=== PATIENT | male | born 1975 | race Hispanic/Latino ===

== ENCOUNTER 2017-12-19 00:37 | Inpatient (IN) | payer OTHER ==
[~2017-12-19] VITALS: Ht 182.9 cm; Wt 166.9 kg
[2017-12-19] MEDS ORDERED: ACETAMINOPHEN 325 MG TAB ONE ×2 (01:05→04:34)
[2017-12-19] MEDS ORDERED: SODIUM CHLORIDE 0.9% 1000ML 3,000 ML IV ONE (01:05)
[2017-12-19 01:20] LABS: BASOPHILS % (AUTO) 0.2 % (0.0-5.0); EOSINOPHILS % (AUTO) 0.2 % (0.0-8.0); HEMATOCRIT 46.5 % (42-54); LYMPHOCYTES % (AUTO) 6.3 % (21.0-51.0); MEAN CORPUSCULAR HEMOGLOBIN 29.6 pg (27.0-33.0); MEAN CORPUSCULAR HGB CONC 33.9 g/dL (32.0-36.0); MEAN CORPUSCULAR VOLUME 87.2 fL (79-99); MONOCYTES % (AUTO) 6.1 % (3.0-13.0); NEUTROPHILS % (AUTO) 87.2 % (40.0-77.0); PLATELET COUNT (AUTO) 243 K/uL (130-400); RED BLOOD CELL COUNT(AUTO) 5.33 MIL/uL (4.50-6.20); RED CELL DISTRIBUTION WIDTH 14.1 % (11.0-15.5); WHITE BLOOD COUNT (AUTO) 19.1 K/uL (4.8-10.8)
[2017-12-19 01:26] LABS: CARBON DIOXIDE 26 mmol/L (21-32); CHLORIDE 101 mmol/L (101-111); CREATININE 1.2 mg/dL (0.5-1.5); GLOMERULAR FILTR. RATE CALC 70 mL/min (>60); GLUCOSE,RANDOM 217 mg/dL (70-105); POTASSIUM 3.7 mmol/L (3.5-5.1); SODIUM SERUM 135 mmol/L (136-145); UREA NITROGEN, BLOOD 19 mg/dL (7-18)
[2017-12-19 01:32] LABS: INR 1.09 (0.85-1.15); PARTIAL THROMBOPLASTIN TIME 28.8 SEC (26.3-35.5); PROTHROMBIN TIME 11.4 SEC (9.6-11.6)
[2017-12-19 01:40] LABS: ALANINE AMINOTRANSFERASE 36 U/L (12-78); ALBUMIN 3.3 g/dL (3.5-5.0); ASPARTATE AMINOTRANSFERASE 30 U/L (10-37); BILIRUBIN,TOTAL 1.1 mg/dL (0.2-1.0); CREATINE KINASE MB 0.5 ng/mL (0.5-3.6); CREATINE KINASE, TOTAL 76 U/L (21-232); MYOGLOBIN 40 ng/mL (10-92); TOTAL PROTEIN, SERUM 7.6 g/dL (6.0-8.3); TROPONIN I < 0.04 ng/mL (0.00-0.06)
[2017-12-19 01:43] LABS: APPEARANCE,URINE Turbid (CLEAR); BILIRUBIN,URINE Moderate (NEGATIVE); COLOR,URINE Dark Yellow (YELLOW); GLUCOSE, URINE (UA) 250 mg/dL (NEGATIVE); KETONES,URINE Trace mg/dL (NEGATIVE); LEUKOCYTE ESTERASE ,URINE Small (NEGATIVE); NITRATE,URINE Positive (NEGATIVE); OCCULT BLOOD,URINE Negative (NEGATIVE); PROTEIN,URINE POS 2+ (NEGATIVE)
[2017-12-19 01:50] LABS: AMPHET/METH SCREEN,URINE NEGATIVE (NEGATIVE); BARBITURATE SCREEN, URINE NEGATIVE (NEGATIVE); BENZODIAZEPINES SCREEN,URINE NEGATIVE (NEGATIVE); CANNABINOID SCREEN,URINE NEGATIVE (NEGATIVE); COCAINE SCREEN,URINE NEGATIVE (NEGATIVE); OPIATE SCREEN,URINE NEGATIVE (NEGATIVE); PHENCYCLIDINE SCREEN,URINE NEGATIVE (NEGATIVE)
[2017-12-19 01:54] LABS: AMORPHOUS SEDIMENT,UR Many /LPF (None Seen); BACTERIA,URINE Moderate /HPF (None Seen); MUCUS,URINE Many LPF (None Seen); RBC,URINE None Seen /HPF (0-1); RENAL EPITHELIAL CELLS,URINE Moderate /HPF (None Seen); SQUAMOUS EPITHELIAL CELL,UR Many /HPF (0-2)
[2017-12-19] MEDS ORDERED: LEVOFLOXACIN 750 MG/D5W 150 ML 150 ML ONE (01:54)
[2017-12-19] MEDS ORDERED: IOPAMIDOL-370 100 ML VIAL IV ONE (02:14)
[2017-12-19] MEDS ORDERED: ONDANSETRON HCL MDV 20ML 2 MG/ML VIAL ONE (04:36)
[2017-12-19] MEDS ORDERED: LEVOFLOXACIN 500 MG/D5W 100 ML 100 ML IV SCH (09:00)
[2017-12-19] MEDS: SODIUM CHLORIDE 0.9% 1000ML 1,000 ML IV SCH ×2 (09:51→17:30)
[2017-12-19] MEDS: ACETAMINOPHEN 325 MG TAB PO PRN ×2 (09:54→14:18)
[2017-12-19 10:03] VITALS: BP 138/82
[2017-12-19] MEDS ORDERED: FLUT16H NS (10:43)
[2017-12-19] MEDS ORDERED: GLIP-162 PO (10:43)
[2017-12-19] MEDS ORDERED: OMEP40CA37 PO (10:43)
[2017-12-19] MEDS ORDERED: SITA1TAB6 PO (10:43)
[2017-12-19] MEDS ORDERED: LISI40TA4 PO (10:43)
[2017-12-19] MEDS ORDERED: VARE1TAB22 PO (10:43)
[2017-12-19] MEDS ORDERED: LORA-705 PO (10:43)
[2017-12-19] MEDS ORDERED: ASPI-1197 PO (10:43)
[2017-12-19] MEDS ORDERED: DEXTROSE 50%-WATER 50 ML DISP.SYRIN IV PRN (11:30)
[2017-12-19] MEDS ORDERED: GLUCAGON 1MG KIT 1 MG ML IM PRN (11:30)
[2017-12-19 11:47] VITALS: BP 113/69
[2017-12-19] MEDS: INSULIN HUMULIN R 100 UNIT/ML 3ML SQ SCH ×3 (12:14→20:45)
[2017-12-19] MEDS ORDERED: HYDRALAZINE HCL 20 MG/ML VIAL IV PRN (13:00)
[2017-12-19] MEDS ORDERED: PHARMACY COMMUNICATION MISC SCH (13:30)
[2017-12-19] MEDS ORDERED: ONDANSETRON HCL MDV 20ML 2 MG/ML VIAL IVP PRN (13:30)
[2017-12-19 16:00] VITALS: BP 127/78
[2017-12-19] MEDS: IBUPROFEN 600 MG TABLET PO PRN ×2 (17:39→22:56)
[2017-12-19 20:17] VITALS: BP 137/75
[2017-12-19] MEDS: METRONIDAZOLE 500MG/100ML BAG 100 ML IV SCH (22:46)
[2017-12-20] VITALS (7 sets, daily range): BP systolic 108–166; BP diastolic 62–93
[2017-12-20] MEDS: ACETAMINOPHEN 325 MG TAB PO PRN ×3 (00:15→21:14)
[2017-12-20] MEDS: METRONIDAZOLE 500MG/100ML BAG 100 ML IV SCH ×2 (05:43→14:09)
[2017-12-20 06:05] LABS: HEMATOCRIT 38.7 % (42-54); MEAN CORPUSCULAR HEMOGLOBIN 29.9 pg (27.0-33.0); MEAN CORPUSCULAR HGB CONC 35.1 g/dL (32.0-36.0); MEAN CORPUSCULAR VOLUME 85.1 fL (79-99); PLATELET COUNT (AUTO) 149 K/uL (130-400); RED BLOOD CELL COUNT(AUTO) 4.55 MIL/uL (4.50-6.20); RED CELL DISTRIBUTION WIDTH 14.1 % (11.0-15.5); WHITE BLOOD COUNT (AUTO) 8.5 K/uL (4.8-10.8)
[2017-12-20 06:16] LABS: CREATININE 0.9 mg/dL (0.5-1.5); MAGNESIUM 1.5 mg/dL (1.80-2.40)
[2017-12-20 06:53] LABS: POTASSIUM 2.7 mmol/L (3.5-5.1)
[2017-12-20] MEDS: INSULIN HUMULIN R 100 UNIT/ML 3ML SQ SCH ×4 (07:24→21:00)
[2017-12-20 08:13] LABS: BAND NEUTROPHILS % (MANUAL) 21 % (0-2); LYMPHOCYTES % (MANUAL) 9 % (22-44); MAN.DIFF COMMENT-IMPRESSION MANUAL DIFFERENTIAL; MONOCYTES % (MANUAL) 4 % (2-9); PLATELET MORPHOLOGY COMMENT ADEQUATE; REACTIVE LYMPHOCYTES 1 % (0-0); SEGMENTED NEUTROPHILS % 65 % (40-70)
[2017-12-20] MEDS ORDERED: LIDOCAINE HCL-MPF 1% 2ML VIAL IVP PRN (08:15)
[2017-12-20] MEDS ORDERED: POTASSIUM CHLORIDE 10% ELIXIR 20 MEQ/15 ML UDCUP PO PRN (08:15)
[2017-12-20] MEDS: POTASSIUM CHLORIDE 20MEQ/100ML 100 ML IV PRN ×2 (09:21→23:40)
[2017-12-20] MEDS: POTASSIUM CHLORIDE 20 MEQ ERTAB PO PRN ×4 (09:22→16:52)
[2017-12-20] MEDS: PANTOPRAZOLE SODIUM 40 MG TABLET.DR PO SCH (09:22)
[2017-12-20] MEDS: ENOXAPARIN SODIUM 30 MG/0.3 ML SQ SCH (09:22)
[2017-12-20] MEDS: SODIUM CHLORIDE 0.9% 1000ML 1,000 ML IV SCH ×3 (09:30→21:14)
[2017-12-20] MEDS: IBUPROFEN 600 MG TABLET PO PRN (10:39)
[2017-12-20] MEDS: FLUTICASONE PROPIONATE 50MCG/SPRAY 16 GM BOTTLE NS SCH (12:30)
[2017-12-20] MEDS: LISINOPRIL 40 MG TABLET PO SCH (13:16)
[2017-12-20] MEDS: MAGNESIUM 2GM PREMIX 50ML 50 ML IV SCH (14:09)
[2017-12-20] MEDS ORDERED: LEVOFLOXACIN 500 MG/D5W 100 ML 100 ML IV SCH (18:00)
[2017-12-20] MEDS: **HM** JANUMET 50-1000MG PO SCH (21:00)
[2017-12-20] MEDS: CHANTIX 1 MG PO SCH (21:00)
[2017-12-21 03:30] VITALS: BP 128/75
[2017-12-21 05:46] LABS: CREATININE 0.8 mg/dL (0.5-1.5); MAGNESIUM 1.8 mg/dL (1.80-2.40); POTASSIUM 3.4 mmol/L (3.5-5.1)
[2017-12-21] MEDS: INSULIN HUMULIN R 100 UNIT/ML 3ML SQ SCH ×4 (06:29→21:00)
[2017-12-21] MEDS: POTASSIUM CHLORIDE 20 MEQ ERTAB PO PRN ×2 (06:30→12:33)
[2017-12-21 07:56] VITALS: BP 127/72
[2017-12-21] MEDS: **HM** JANUMET 50-1000MG PO SCH ×2 (09:00→21:00)
[2017-12-21] MEDS: CHANTIX 1 MG PO SCH ×2 (09:00→21:00)
[2017-12-21] MEDS ORDERED: NON-FORMULARY MEDICATION 1 EACH (Omeprazole 40 MG) PO SCH (09:00)
[2017-12-21] MEDS ORDERED: LISINOPRIL 40 MG TABLET PO SCH (09:00)
[2017-12-21] MEDS: GLIPIZIDE XL 5MG TAB PO SCH (09:00)
[2017-12-21] MEDS: SODIUM CHLORIDE 0.9% 1000ML 1,000 ML IV SCH (09:30)
[2017-12-21] MEDS: ENOXAPARIN SODIUM 30 MG/0.3 ML SQ SCH (11:41)
[2017-12-21] MEDS: LISINOPRIL 40 MG TABLET PO SCH (11:42)
[2017-12-21] MEDS: ASPIRIN 81MG TAB.CHEW PO SCH (11:42)
[2017-12-21] MEDS: PANTOPRAZOLE SODIUM 40 MG TABLET.DR PO SCH (11:42)
[2017-12-21] MEDS: FLUTICASONE PROPIONATE 50MCG/SPRAY 16 GM BOTTLE NS SCH (11:43)
[2017-12-21] MEDS: LORATADINE 10 MG TABLET PO SCH (11:47)
[2017-12-21] MEDS: MAGNESIUM 2GM PREMIX 50ML 50 ML IV SCH (11:48)
[2017-12-21 12:29] VITALS: BP 124/77
[2017-12-21 16:46] VITALS: BP 129/72
[2017-12-21 19:15] VITALS: BP 129/74
[2017-12-21] MEDS ORDERED: LEVOFLOXACIN 500 MG/D5W 100 ML 100 ML IV SCH (20:00)
[2017-12-21 23:46] VITALS: BP 130/73
[2017-12-22 04:07] VITALS: BP 135/77
[2017-12-22 05:06] LABS: HEMATOCRIT 38.4 % (42-54); MEAN CORPUSCULAR HEMOGLOBIN 30.3 pg (27.0-33.0); MEAN CORPUSCULAR HGB CONC 35.5 g/dL (32.0-36.0); MEAN CORPUSCULAR VOLUME 85.4 fL (79-99); PLATELET COUNT (AUTO) 192 K/uL (130-400); RED CELL DISTRIBUTION WIDTH 13.8 % (11.0-15.5); WHITE BLOOD COUNT (AUTO) 8.4 K/uL (4.8-10.8)
[2017-12-22 05:30] LABS: CREATININE 0.9 mg/dL (0.5-1.5); MAGNESIUM 1.9 mg/dL (1.80-2.40); POTASSIUM 3.4 mmol/L (3.5-5.1)
[2017-12-22] MEDS: INSULIN HUMULIN R 100 UNIT/ML 3ML SQ SCH ×2 (05:33→11:30)
[2017-12-22] MEDS: SODIUM CHLORIDE 0.9% 1000ML 1,000 ML IV SCH (06:44)
[2017-12-22] MEDS: POTASSIUM CHLORIDE 20 MEQ ERTAB PO PRN (06:45)
[2017-12-22] MEDS: MAGNESIUM 2GM PREMIX 50ML 50 ML IV SCH (07:44)
[2017-12-22 08:00] VITALS: BP 118/75
[2017-12-22] MEDS: ENOXAPARIN SODIUM 30 MG/0.3 ML SQ SCH (09:00)
[2017-12-22] MEDS: PANTOPRAZOLE SODIUM 40 MG TABLET.DR PO SCH (10:42)
[2017-12-22] MEDS: GLIPIZIDE XL 5MG TAB PO SCH (10:42)
[2017-12-22] MEDS: LISINOPRIL 40 MG TABLET PO SCH (10:42)
[2017-12-22] MEDS: ASPIRIN 81MG TAB.CHEW PO SCH (10:43)
[2017-12-22] MEDS: LORATADINE 10 MG TABLET PO SCH (10:43)
[2017-12-22] MEDS: FLUTICASONE PROPIONATE 50MCG/SPRAY 16 GM BOTTLE NS SCH (10:44)
[2017-12-22] MEDS: CHANTIX 1 MG PO SCH (10:47)
[2017-12-22] MEDS: **HM** JANUMET 50-1000MG PO SCH (10:47)
[2017-12-22 11:52] VITALS: BP 138/79
== END 2017-12-22 12:59 | disposition home or self-care (01) | DRG 872 ==
LOC: EDH 00:37 → EDHIP 06:29 → 4CH 08:46
PROVIDERS: ADMIT Family Medicine; ATTEND Family Medicine
DX: A41.9 Sepsis, unspecified organism (principal); E66.01 Morbid (severe) obesity due to excess calories; A04.4 Other intestinal Escherichia coli infections; N39.0 Urinary tract infection, site not specified; Z68.42 Body mass index [BMI] 45.0-49.9, adult; E11.9 Type 2 diabetes mellitus without complications; E78.5 Hyperlipidemia, unspecified; B95.5 Unspecified streptococcus as the cause of diseases classified elsewhere; E83.42 Hypomagnesemia; E86.0 Dehydration; E87.6 Hypokalemia; G47.33 Obstructive sleep apnea (adult) (pediatric); I10 Essential (primary) hypertension; J44.9 Chronic obstructive pulmonary disease, unspecified; Z88.0 Allergy status to penicillin; Z87.891 Personal history of nicotine dependence; Z83.3 Family history of diabetes mellitus
CPT/HCPCS: 36415; 71045; 74177; 80048; 80053; 80305; 81001; 82550; 82553; 82948; 83605; 83735; 83874; 84484; 85025; 85027; 85610; 85730; 87040; 87088; 87186; 87205; 87338; 87507; 93005; J1650; J1815; J1956; J3475; J3480; J3490; J7030; Q9967

== ENCOUNTER 2018-12-20 08:35 | Emergency (ER) | payer OTHER ==
[~2018-12-20 08:35] MED LIST: ASPI-1197 PO; FLUT16H NS; GLIP-162 PO; LISI40TA4 PO; LORA-705 PO; OMEP40CA37 PO; SITA1TAB6 PO; VARE1TAB22 PO
[2018-12-20 08:54] LABS: APPEARANCE,URINE Clear (CLEAR); BILIRUBIN,URINE Negative (NEGATIVE); COLOR,URINE Yellow (YELLOW); GLUCOSE, URINE (UA) >=1000 mg/dL (NEGATIVE); KETONES,URINE Trace mg/dL (NEGATIVE); LEUKOCYTE ESTERASE ,URINE Negative (NEGATIVE); NITRATE,URINE Negative (NEGATIVE); OCCULT BLOOD,URINE Negative (NEGATIVE); PROTEIN,URINE Negative (NEGATIVE)
[2018-12-20 09:16] LABS: BACTERIA,URINE Few /HPF (None Seen); RBC,URINE 0-1 /HPF (0-1); SQUAMOUS EPITHELIAL CELL,UR 0-2 /HPF (0-2); WBC,URINE 0-1 /HPF (0-1)
[2018-12-20] MEDS ORDERED: KETOROLAC TROMETHAMINE 30MG/ML ONE (09:37)
[2018-12-20] MEDS ORDERED: ONDANSETRON HCL 4 MG/2 ML VIAL ONE (09:37)
[2018-12-20 09:41] LABS: BASOPHILS % (AUTO) 0.7 % (0.0-5.0); EOSINOPHILS % (AUTO) 3.9 % (0.0-8.0); HEMATOCRIT 46.1 % (42-54); LYMPHOCYTES % (AUTO) 14.2 % (21.0-51.0); MEAN CORPUSCULAR HEMOGLOBIN 29.1 pg (27.0-33.0); MEAN CORPUSCULAR HGB CONC 33.8 g/dL (32.0-36.0); MEAN CORPUSCULAR VOLUME 86.2 fL (79-99); MONOCYTES % (AUTO) 4.5 % (3.0-13.0); NEUTROPHILS % (AUTO) 76.7 % (40.0-77.0); PLATELET COUNT (AUTO) 207 K/uL (130-400); RED BLOOD CELL COUNT(AUTO) 5.35 MIL/uL (4.50-6.20); RED CELL DISTRIBUTION WIDTH 13.6 % (11.0-15.5); WHITE BLOOD COUNT (AUTO) 14.2 K/uL (4.8-10.8)
[2018-12-20 09:48] LABS: CREATININE 0.8 mg/dL (0.5-1.5); POTASSIUM 3.8 mmol/L (3.5-5.1)
[2018-12-20 09:53] LABS: ALBUMIN 3.2 g/dL (3.5-5.0); BILIRUBIN,DIRECT 0.1 mg/dL (0.0-0.3); BILIRUBIN,TOTAL 0.6 mg/dL (0.2-1.0); TOTAL PROTEIN, SERUM 7.5 g/dL (6.0-8.3)
== END 2018-12-20 11:51 | disposition home or self-care (01) ==
LOC: EDH 08:35
DX: R10.12 Left upper quadrant pain (principal); I25.10 Atherosclerotic heart disease of native coronary artery without angina pectoris; E11.9 Type 2 diabetes mellitus without complications; K21.9 Gastro-esophageal reflux disease without esophagitis; I10 Essential (primary) hypertension; Z88.0 Allergy status to penicillin; Z98.890 Other specified postprocedural states
CPT/HCPCS: 36415; 74176; 80048; 80076; 81001; 83690; 85025; 96374; 96375; 99284; J1885; J2405

== ENCOUNTER 2019-10-20 10:39 | Inpatient (IN) | payer OTHER ==
[~2019-10-20] VITALS: Ht 182.9 cm; Wt 108.9 kg
[~2019-10-20 10:39] MED LIST changes: +OMEP40CA13 PO; -OMEP40CA37 PO
[2019-10-20] MEDS ORDERED: MORPHINE SULFATE 4 MG/1ML SYG ONE ×2 (11:08→12:03)
[2019-10-20] MEDS ORDERED: ONDANSETRON HCL 4 MG/2 ML VIAL ONE (11:08)
[2019-10-20 11:12] LABS: BASOPHILS % (AUTO) 0.3 % (0.0-5.0); EOSINOPHILS % (AUTO) 1.8 % (0.0-8.0); HEMATOCRIT 48.2 % (42-54); LYMPHOCYTES % (AUTO) 23.2 % (21.0-51.0); MEAN CORPUSCULAR HEMOGLOBIN 28.9 pg (27.0-33.0); MEAN CORPUSCULAR HGB CONC 34.2 g/dL (32.0-36.0); MEAN CORPUSCULAR VOLUME 84.6 fL (79-99); PLATELET COUNT (AUTO) 216 K/uL (130-400); RED CELL DISTRIBUTION WIDTH 12.8 % (11.0-15.5); WHITE BLOOD COUNT (AUTO) 12.6 K/uL (4.8-10.8)
[2019-10-20 11:29] LABS: CREATININE 0.8 mg/dL (0.5-1.5); POTASSIUM 3.7 mmol/L (3.5-5.1)
[2019-10-20 11:33] LABS: ALBUMIN 3.3 g/dL (3.5-5.0); BILIRUBIN,TOTAL 0.4 mg/dL (0.2-1.0); TOTAL PROTEIN, SERUM 7.7 g/dL (6.0-8.3)
[2019-10-20 12:45] LABS: APPEARANCE,URINE Clear (CLEAR); BILIRUBIN,URINE Negative (NEGATIVE); COLOR,URINE Yellow (YELLOW); GLUCOSE, URINE (UA) >=1000 mg/dL (NEGATIVE); KETONES,URINE 15 mg/dL (NEGATIVE); LEUKOCYTE ESTERASE ,URINE Negative (NEGATIVE); NITRATE,URINE Negative (NEGATIVE); OCCULT BLOOD,URINE Negative (NEGATIVE); PROTEIN,URINE POS 1+ mg/dL (NEGATIVE)
[2019-10-20 13:09] LABS: BACTERIA,URINE Few /HPF (None Seen); RBC,URINE 0-1 /HPF (0-1); SQUAMOUS EPITHELIAL CELL,UR Few /HPF (0-2); WBC,URINE 0-1 /HPF (0-1)
[2019-10-20] MEDS ORDERED: ONDANSETRON HCL 4 MG/2 ML VIAL IVP PRN (14:30)
[2019-10-20] MEDS ORDERED: GLUCAGON 1MG KIT 1 MG ML IM PRN (14:30)
[2019-10-20] MEDS ORDERED: DEXTROSE 50%-WATER 50 ML DISP.SYRIN IV PRN (14:30)
[2019-10-20] MEDS ORDERED: SODIUM CHLORIDE 0.9% 1000ML 1,000 ML IV ONE (15:48)
[2019-10-20] MEDS ORDERED: KETOROLAC TROMETHAMINE 30MG/ML ONE (15:53)
[2019-10-20 16:04] LABS: HEMOGLOBIN A1C 9.7 % (4.0-6.0)
[2019-10-20 16:25] LABS: CREATINE KINASE, TOTAL 27 U/L (21-232); MYOGLOBIN 19 ng/mL (10-92); TROPONIN I < 0.04 ng/mL (0.00-0.06)
[2019-10-20 16:27] LABS: CHOLESTEROL 113 mg/dL (<200); HDL CHOLESTEROL 24 mg/dL (29-71); TRIGLYCERIDES 217 mg/dL (30-200)
[2019-10-20 16:28] LABS: LDL DIRECT 67 mg/dL (0-99)
[2019-10-20] MEDS: INSULIN HUMULIN R 100 UNIT/ML 3ML SQ SCH ×2 (16:30→21:00)
[2019-10-20] MEDS ORDERED: ACETAMINOPHEN 650 MG SUPPOSITORY RC PRN ×2 (21:15)
[2019-10-20] MEDS ORDERED: MORPHINE SULFATE 2 MG/ML 1ML SYG IVP PRN (21:15)
[2019-10-20] MEDS ORDERED: MORPHINE SULFATE 2 MG/ML 1ML SYG ONE (21:17)
[2019-10-20] MEDS ORDERED: ACETAMINOPHEN 325 MG TAB ONE (21:17)
[2019-10-20] MEDS: SODIUM CHLORIDE 0.9% 1000ML 1,000 ML IV SCH (23:14)
[2019-10-20 23:15] VITALS: BP 112/49
[2019-10-20 23:36] LABS: CREATINE KINASE, TOTAL 30 U/L (21-232); MYOGLOBIN 25 ng/mL (10-92); TROPONIN I < 0.04 ng/mL (0.00-0.06)
[2019-10-21] MEDS ORDERED: INSULIN HUMULIN R 100 UNIT/ML 3ML ONE (00:40)
[2019-10-21] MEDS: INSULIN HUMULIN R 100 UNIT/ML 3ML SQ SCH ×5 (00:40→21:52)
[2019-10-21] MEDS ORDERED: PRAV10TA39 PO (01:05)
[2019-10-21] MEDS ORDERED: SILD100T PO (01:05)
[2019-10-21] MEDS ORDERED: FLUO10CA22 PO (01:05)
[2019-10-21] MEDS ORDERED: ALPR1TAB7 PO (01:05)
[2019-10-21 04:00] VITALS: BP 120/69
[2019-10-21] MEDS: KETOROLAC TROMETHAMINE 15MG/ML IV PRN ×2 (04:06→16:29)
[2019-10-21] MEDS: METRONIDAZOLE 500MG/100ML BAG 100 ML IV SCH ×3 (05:57→21:51)
[2019-10-21] MEDS: LEVOFLOXACIN 500 MG/D5W 100 ML 100 ML IV SCH (05:58)
[2019-10-21 06:49] LABS: BASOPHILS % (AUTO) 0.2 % (0.0-5.0); HEMATOCRIT 46.4 % (42-54); LYMPHOCYTES % (AUTO) 7.8 % (21.0-51.0); MEAN CORPUSCULAR HGB CONC 33.8 g/dL (32.0-36.0); MEAN CORPUSCULAR VOLUME 85.6 fL (79-99); MONOCYTES % (AUTO) 6.7 % (3.0-13.0); NEUTROPHILS % (AUTO) 84.6 % (40.0-77.0); PLATELET COUNT (AUTO) 199 K/uL (130-400); RED BLOOD CELL COUNT(AUTO) 5.42 MIL/uL (4.50-6.20); RED CELL DISTRIBUTION WIDTH 13.2 % (11.0-15.5); WHITE BLOOD COUNT (AUTO) 22.1 K/uL (4.8-10.8)
[2019-10-21 06:59] LABS: INR 1.09 (0.85-1.15); PROTHROMBIN TIME 11.7 SEC (9.6-11.6)
[2019-10-21 07:08] LABS: CREATININE 0.9 mg/dL (0.5-1.5); POTASSIUM 3.5 mmol/L (3.5-5.1)
[2019-10-21 07:30] VITALS: BP 98/68
--- NOTE | 2019-10-21 08:29 | NUR ---
CALL OUT PLACED TO DR. PAIZ ANSWERING SERVICE. SPOKE TO GWEN MADE AWARE OF NEW CONSULT
[2019-10-21 10:06] LABS: ALBUMIN 3.3 g/dL (3.5-5.0); BILIRUBIN,DIRECT 0.2 mg/dL (0.0-0.3); BILIRUBIN,TOTAL 0.6 mg/dL (0.2-1.0); TOTAL PROTEIN, SERUM 7.7 g/dL (6.0-8.3)
[2019-10-21 11:00] VITALS: BP 118/76
[2019-10-21] MEDS: LISINOPRIL 40 MG TABLET PO SCH (11:07)
[2019-10-21] MEDS: SODIUM CHLORIDE 0.9% 1000ML 1,000 ML IV SCH ×2 (11:07→20:52)
[2019-10-21] MEDS: PANTOPRAZOLE 40 MG/VIAL IVP SCH (11:07)
[2019-10-21] MEDS ORDERED: LACTULOSE 20 GM/30 ML UDCUP PO PRN (12:00)
[2019-10-21 12:43] LABS: HEMOGLOBIN A1C 9.8 % (4.0-6.0)
--- NOTE | 2019-10-21 15:22 | NUR ---
D/C PLAN CM spoke to pt regarding d/c planning. Pt is [place] and lives with spouse. States spouse can assist in care if needed. Denies having any DME. Plan to home. No needs verbalized or identified. CM to f/u. Addendum: 10/21/19 at 1524 by KENAN MCKEON CM Amended: Links added.
[2019-10-21 16:00] VITALS: BP 115/77
[2019-10-21] MEDS: SITAGLIPTIN PHOS PO SCH (16:31)
[2019-10-21] MEDS: METFORMIN HCL PO SCH (16:31)
[2019-10-21 20:00] VITALS: BP 126/77
[2019-10-21] MEDS: SIMVASTATIN 10 MG TABLET PO SCH (20:53)
[2019-10-21] MEDS ORDERED: ACETAMINOPHEN 325 MG TAB PO PRN (21:00)
[2019-10-22] VITALS: BP 129/72
[2019-10-22 04:00] VITALS: BP 119/72
[2019-10-22] MEDS: LEVOFLOXACIN 500 MG/D5W 100 ML 100 ML IV SCH (04:10)
[2019-10-22] MEDS: SODIUM CHLORIDE 0.9% 1000ML 1,000 ML IV SCH ×2 (05:11→16:37)
[2019-10-22] MEDS: METRONIDAZOLE 500MG/100ML BAG 100 ML IV SCH ×3 (05:11→22:05)
[2019-10-22 05:46] LABS: ALBUMIN 2.6 g/dL (3.5-5.0); BILIRUBIN,TOTAL 1.7 mg/dL (0.2-1.0); CREATININE 0.9 mg/dL (0.5-1.5); POTASSIUM 3.4 mmol/L (3.5-5.1); TOTAL PROTEIN, SERUM 7.2 g/dL (6.0-8.3)
[2019-10-22] MEDS: INSULIN HUMULIN R 100 UNIT/ML 3ML SQ SCH ×4 (06:19→22:19)
[2019-10-22] MEDS ORDERED: POTASSIUM CHLORIDE 10% ELIXIR 20 MEQ/15 ML UDCUP PO PRN (06:30)
[2019-10-22] MEDS ORDERED: LIDOCAINE HCL-MPF 1% 2ML VIAL IV PRN (06:30)
[2019-10-22] MEDS ORDERED: POTASSIUM CHLORIDE 20MEQ/100ML 100 ML IV PRN (06:30)
[2019-10-22 07:47] VITALS: BP 108/67
[2019-10-22] MEDS: SITAGLIPTIN PHOS PO SCH ×2 (08:00→16:37)
[2019-10-22] MEDS: METFORMIN HCL PO SCH ×2 (08:00→16:37)
[2019-10-22] MEDS: LISINOPRIL 40 MG TABLET PO SCH (09:00)
[2019-10-22] MEDS: GLIPIZIDE XL 5MG TAB PO SCH (09:50)
[2019-10-22] MEDS: FLUOXETINE HCL 10 MG CAPSULE PO SCH (09:50)
[2019-10-22] MEDS: PANTOPRAZOLE 40 MG/VIAL IVP SCH (09:51)
[2019-10-22] MEDS: KETOROLAC TROMETHAMINE 15MG/ML IV PRN ×2 (09:51→21:26)
[2019-10-22 11:00] VITALS: BP 81/47
[2019-10-22] MEDS: POTASSIUM CHLORIDE 20 MEQ ERTAB PO PRN ×2 (12:14→14:41)
[2019-10-22 16:00] VITALS: BP 105/66
[2019-10-22 21:15] VITALS: BP 127/66
[2019-10-22] MEDS: SIMVASTATIN 10 MG TABLET PO SCH (21:25)
[2019-10-23] VITALS (24 sets, daily range): BP systolic 107–147; BP diastolic 67–83
[2019-10-23] MEDS: SODIUM CHLORIDE 0.9% 1000ML 1,000 ML IV SCH ×3 (01:30→22:01)
[2019-10-23] MEDS: LEVOFLOXACIN 500 MG/D5W 100 ML 100 ML IV SCH (05:35)
[2019-10-23] MEDS: INSULIN HUMULIN R 100 UNIT/ML 3ML SQ SCH ×3 (05:43→18:40)
[2019-10-23 06:15] LABS: BASOPHILS % (AUTO) 0.2 % (0.0-5.0); EOSINOPHILS % (AUTO) 0.7 % (0.0-8.0); LYMPHOCYTES % (AUTO) 14.4 % (21.0-51.0); MEAN CORPUSCULAR HGB CONC 33.3 g/dL (32.0-36.0); MEAN CORPUSCULAR VOLUME 87.1 fL (79-99); MONOCYTES % (AUTO) 4.3 % (3.0-13.0); NEUTROPHILS % (AUTO) 79.8 % (40.0-77.0); PLATELET COUNT (AUTO) 189 K/uL (130-400); RED BLOOD CELL COUNT(AUTO) 4.82 MIL/uL (4.50-6.20); WHITE BLOOD COUNT (AUTO) 17.3 K/uL (4.8-10.8)
[2019-10-23] MEDS: METRONIDAZOLE 500MG/100ML BAG 100 ML IV SCH ×3 (06:22→22:01)
[2019-10-23 06:48] LABS: ALBUMIN 2.4 g/dL (3.5-5.0); CREATININE 0.9 mg/dL (0.5-1.5); POTASSIUM 3.3 mmol/L (3.5-5.1); TOTAL PROTEIN, SERUM 6.9 g/dL (6.0-8.3)
[2019-10-23] MEDS: METFORMIN HCL PO SCH ×2 (08:00→16:50)
[2019-10-23] MEDS: SITAGLIPTIN PHOS PO SCH ×2 (08:00→16:50)
[2019-10-23] MEDS: GLIPIZIDE XL 5MG TAB PO SCH (08:03)
[2019-10-23] MEDS: LISINOPRIL 40 MG TABLET PO SCH (08:03)
[2019-10-23] MEDS: FLUOXETINE HCL 10 MG CAPSULE PO SCH (08:03)
[2019-10-23] MEDS: PANTOPRAZOLE 40 MG/VIAL IVP SCH (09:10)
[2019-10-23] MEDS ORDERED: SUCCINYLCHOLINE CHLORIDE 20 MG/ML 10 ML VIAL ONE (13:38)
[2019-10-23] MEDS ORDERED: LIDOCAINE PF 2% 5ML ABBOJECT ONE ×2 (13:38→14:45)
[2019-10-23] MEDS ORDERED: PROPOFOL 10 MG/ML 20ML VIAL IV ONE (13:38)
[2019-10-23] MEDS ORDERED: ROCURONIUM 10MG/1ML SYR 10 MG/ML ML ONE (13:38)
[2019-10-23] MEDS ORDERED: FENTANYL CITRATE PF 50 MCG/1 ML 2ML VIAL ONE ×2 (13:39→14:39)
[2019-10-23] MEDS ORDERED: MEPERIDINE-PF 25 MG/ML SYG ONE ×3 (13:39→15:18)
--- NOTE | 2019-10-23 13:41 | NUR ---
POTENTIAL FOR INFECTION: SHAVED ENTIRE ABDOMEN L[place]IA[place]
[2019-10-23] MEDS ORDERED: BUPIVACAINE/PF 0.5% 30ML VIAL ONE (14:02)
[2019-10-23] MEDS ORDERED: GLYCOPYRROLATE 1 MG/5 ML SYRINGE ONE (14:38)
[2019-10-23] MEDS ORDERED: ONDANSETRON HCL 4 MG/2 ML VIAL ONE (14:39)
[2019-10-23] MEDS ORDERED: NEOSTIGMINE 5MG/5ML SYR IV ONE ×2 (14:39→14:48)
[2019-10-23] MEDS: POTASSIUM CHLORIDE 20 MEQ ERTAB PO PRN ×2 (16:49→19:51)
[2019-10-23] MEDS ORDERED: MORPHINE SULFATE 2 MG/ML 1ML SYG IVP PRN (18:00)
[2019-10-23] MEDS: SIMVASTATIN 10 MG TABLET PO SCH (19:51)
[2019-10-23] MEDS: MORPHINE SULFATE 4 MG/1ML SYG IV PRN (22:00)
[2019-10-24] MEDS: MORPHINE SULFATE 4 MG/1ML SYG IV PRN ×2 (02:25→17:23)
[2019-10-24 04:17] VITALS: BP 139/81
[2019-10-24] MEDS: LEVOFLOXACIN 500 MG/D5W 100 ML 100 ML IV SCH (05:14)
[2019-10-24 05:23] LABS: BASOPHILS % (AUTO) 0.2 % (0.0-5.0); EOSINOPHILS % (AUTO) 0.2 % (0.0-8.0); HEMATOCRIT 41.5 % (42-54); LYMPHOCYTES % (AUTO) 10.7 % (21.0-51.0); MEAN CORPUSCULAR HEMOGLOBIN 28.9 pg (27.0-33.0); MEAN CORPUSCULAR HGB CONC 33.3 g/dL (32.0-36.0); MONOCYTES % (AUTO) 6.3 % (3.0-13.0); NEUTROPHILS % (AUTO) 81.8 % (40.0-77.0); PLATELET COUNT (AUTO) 266 K/uL (130-400); RED BLOOD CELL COUNT(AUTO) 4.77 MIL/uL (4.50-6.20); RED CELL DISTRIBUTION WIDTH 13.2 % (11.0-15.5)
[2019-10-24] MEDS ORDERED: IPRATROPIUM/ALBUTEROL SULFATE 3 ML SOLUTION IH PRN (05:30)
[2019-10-24 05:38] LABS: ALBUMIN 2.2 g/dL (3.5-5.0); CREATININE 0.9 mg/dL (0.5-1.5); POTASSIUM 3.6 mmol/L (3.5-5.1); TOTAL PROTEIN, SERUM 6.7 g/dL (6.0-8.3)
[2019-10-24] MEDS: METRONIDAZOLE 500MG/100ML BAG 100 ML IV SCH ×3 (06:04→21:46)
[2019-10-24] MEDS: INSULIN HUMULIN R 100 UNIT/ML 3ML SQ SCH ×5 (06:05→20:27)
[2019-10-24] MEDS: POTASSIUM CHLORIDE 20 MEQ ERTAB PO PRN (06:29)
[2019-10-24 07:30] VITALS: BP 144/85
[2019-10-24] MEDS: METFORMIN HCL PO SCH ×2 (08:00→17:00)
[2019-10-24] MEDS: SITAGLIPTIN PHOS PO SCH ×2 (08:00→17:00)
[2019-10-24] MEDS: FLUOXETINE HCL 10 MG CAPSULE PO SCH (08:49)
[2019-10-24] MEDS: PANTOPRAZOLE SODIUM 40 MG TABLET.DR PO SCH (08:49)
[2019-10-24] MEDS: GLIPIZIDE XL 5MG TAB PO SCH (08:49)
[2019-10-24] MEDS: LISINOPRIL 40 MG TABLET PO SCH (08:49)
[2019-10-24] MEDS: SODIUM CHLORIDE 0.9% 1000ML 1,000 ML IV SCH ×2 (08:50→19:02)
[2019-10-24 11:00] VITALS: BP 118/81
--- NOTE | 2019-10-24 15:09 | NUR ---
PATIENT AMBULATING PER DR RECOMMENDATIONS. AT SIDE.
[2019-10-24 16:00] VITALS: BP 117/73
[2019-10-24] MEDS: SIMETHICONE 80 MG TAB.CHEW PO PRN (17:22)
[2019-10-24] MEDS: SIMVASTATIN 10 MG TABLET PO SCH (19:02)
[2019-10-24 20:07] VITALS: BP 119/67
[2019-10-24] MEDS: KETOROLAC TROMETHAMINE 15MG/ML IV PRN (23:11)
[2019-10-24 23:30] VITALS: BP 132/76
[2019-10-25 03:41] VITALS: BP 126/73
[2019-10-25] MEDS: SODIUM CHLORIDE 0.9% 1000ML 1,000 ML IV SCH ×2 (03:44→15:25)
[2019-10-25] MEDS: LEVOFLOXACIN 500 MG/D5W 100 ML 100 ML IV SCH (03:44)
[2019-10-25] MEDS: METRONIDAZOLE 500MG/100ML BAG 100 ML IV SCH ×3 (05:07→22:01)
[2019-10-25 05:39] LABS: BASOPHILS % (AUTO) 0.4 % (0.0-5.0); EOSINOPHILS % (AUTO) 0.9 % (0.0-8.0); HEMATOCRIT 39.4 % (42-54); LYMPHOCYTES % (AUTO) 14.2 % (21.0-51.0); MEAN CORPUSCULAR HEMOGLOBIN 28.7 pg (27.0-33.0); MONOCYTES % (AUTO) 7.3 % (3.0-13.0); NEUTROPHILS % (AUTO) 76.3 % (40.0-77.0); PLATELET COUNT (AUTO) 234 K/uL (130-400); RED BLOOD CELL COUNT(AUTO) 4.53 MIL/uL (4.50-6.20); WHITE BLOOD COUNT (AUTO) 13.8 K/uL (4.8-10.8)
[2019-10-25 06:03] LABS: BILIRUBIN,TOTAL 0.6 mg/dL (0.2-1.0); CREATININE 0.8 mg/dL (0.5-1.5); POTASSIUM 3.1 mmol/L (3.5-5.1); TOTAL PROTEIN, SERUM 6.2 g/dL (6.0-8.3)
[2019-10-25] MEDS: INSULIN HUMULIN R 100 UNIT/ML 3ML SQ SCH ×4 (06:43→20:51)
[2019-10-25] MEDS: POTASSIUM CHLORIDE 20 MEQ ERTAB PO PRN ×3 (06:50→15:36)
[2019-10-25] MEDS: PANTOPRAZOLE SODIUM 40 MG TABLET.DR PO SCH (06:50)
[2019-10-25 07:30] VITALS: BP 120/78
[2019-10-25] MEDS: SITAGLIPTIN PHOS PO SCH ×2 (08:00→16:51)
[2019-10-25] MEDS: METFORMIN HCL PO SCH ×2 (08:00→16:51)
[2019-10-25] MEDS: LISINOPRIL 40 MG TABLET PO SCH (08:30)
[2019-10-25] MEDS: GLIPIZIDE XL 5MG TAB PO SCH (08:30)
[2019-10-25] MEDS: FLUOXETINE HCL 10 MG CAPSULE PO SCH (08:30)
--- NOTE | 2019-10-25 09:45 | NUR ---
SURGERY VITO MORE PA-C IN TO SEE PATIENT FOR DR. PAIZ. NEW ORDERS RECEIVED AND CARRIED OUT.
[2019-10-25 11:00] VITALS: BP 124/75
[2019-10-25] MEDS: LACTULOSE 20 GM/30 ML UDCUP PO SCH ×2 (15:25→20:52)
[2019-10-25] MEDS ORDERED: POTASSIUM CHLORIDE 10 MEQ/TAB.SA PO SCH (17:45)
[2019-10-25] MEDS: SIMVASTATIN 10 MG TABLET PO SCH (19:51)
[2019-10-25] MEDS: KETOROLAC TROMETHAMINE 15MG/ML IV PRN (19:56)
[2019-10-25 20:24] VITALS: BP 127/75
[2019-10-25] MEDS: SIMETHICONE 80 MG TAB.CHEW PO PRN (22:11)
[2019-10-25] MEDS: MORPHINE SULFATE 4 MG/1ML SYG IV PRN (22:12)
[2019-10-26 00:37] VITALS: BP 121/69
[2019-10-26 04:00] VITALS: BP 122/75
[2019-10-26] MEDS: LACTULOSE 20 GM/30 ML UDCUP PO SCH ×2 (04:29→14:07)
[2019-10-26] MEDS: LEVOFLOXACIN 500 MG/D5W 100 ML 100 ML IV SCH (04:30)
[2019-10-26 06:05] LABS: BASOPHILS % (AUTO) 0.3 % (0.0-5.0); EOSINOPHILS % (AUTO) 1.7 % (0.0-8.0); HEMATOCRIT 40.3 % (42-54); LYMPHOCYTES % (AUTO) 15.3 % (21.0-51.0); MEAN CORPUSCULAR HEMOGLOBIN 28.4 pg (27.0-33.0); MEAN CORPUSCULAR HGB CONC 32.5 g/dL (32.0-36.0); MEAN CORPUSCULAR VOLUME 87.2 fL (79-99); MONOCYTES % (AUTO) 6.9 % (3.0-13.0); NEUTROPHILS % (AUTO) 74.7 % (40.0-77.0); PLATELET COUNT (AUTO) 253 K/uL (130-400); RED BLOOD CELL COUNT(AUTO) 4.62 MIL/uL (4.50-6.20); RED CELL DISTRIBUTION WIDTH 13.2 % (11.0-15.5); WHITE BLOOD COUNT (AUTO) 13.1 K/uL (4.8-10.8)
[2019-10-26] MEDS: METRONIDAZOLE 500MG/100ML BAG 100 ML IV SCH ×2 (06:26→13:55)
[2019-10-26] MEDS: INSULIN HUMULIN R 100 UNIT/ML 3ML SQ SCH ×3 (06:33→16:30)
[2019-10-26 06:35] LABS: BILIRUBIN,TOTAL 0.5 mg/dL (0.2-1.0); CREATININE 1.1 mg/dL (0.5-1.5); POTASSIUM 3.6 mmol/L (3.5-5.1); TOTAL PROTEIN, SERUM 6.3 g/dL (6.0-8.3)
[2019-10-26 07:30] VITALS: BP 119/65
[2019-10-26] MEDS: METFORMIN HCL PO SCH ×2 (08:00→17:00)
[2019-10-26] MEDS: SITAGLIPTIN PHOS PO SCH ×2 (08:00→17:00)
[2019-10-26] MEDS: LISINOPRIL 40 MG TABLET PO SCH (08:11)
[2019-10-26] MEDS: FLUOXETINE HCL 10 MG CAPSULE PO SCH (08:11)
[2019-10-26] MEDS: GLIPIZIDE XL 5MG TAB PO SCH (08:12)
[2019-10-26 11:00] VITALS: BP 120/75
[2019-10-26] MEDS: KETOROLAC TROMETHAMINE 15MG/ML IV PRN (13:48)
--- NOTE | 2019-10-26 15:08 | NUR ---
NUTRITION EDUCATION JAMEL provided Cholecystectomy Nutrition education. RD provided reference materials and handouts. RD answered all of Pt questions. Pt requests Icelandic printed materials for . Pt verbalized understanding. Addendum: 10/26/19 at [address] RD Amended: Links added.
--- NOTE | 2019-10-26 15:12 | NUR ---
JAMEL SCREEN - LOS X 6 Pt is s/p Kofi Felipe. JAMEL provided Cholecystectomy nutrition education. Upon visit, Pt reports improving appetite with no GI distress. Pt Obesity Class I (BMI 32.5). RD to continue to monitor PO status and nutritional labs. Please notify as additional nutrition concerns arise. Thank you. Addendum: 10/26/19 at [address] RD Amended: Links added.
[2019-10-26 16:00] VITALS: BP 118/63
[2019-10-26] MEDS ORDERED: METR-172 PO (17:04)
[2019-10-26] MEDS ORDERED: LEVO500T89 PO (17:04)
[2019-10-26 20:24] VITALS: BP 140/81
--- NOTE | 2019-10-26 20:36 | NUR ---
PT D/C WITH TEACH BACK SUCCESSFULLY NO CHEST PAIN OR SHORTNESS OF BREATH IV REMOVED, CATHETER INTACT RX GIVEN ALONG WITH ALL D/C INSTRUCTIONS PT'S VITAL SINGS STABLE
== END 2019-10-26 20:45 | disposition home or self-care (01) | DRG 418 ==
LOC: EDH 10:39 → OBSVTOIN 14:26 → EDHIP 14:26 → 4DH 22:20
PROVIDERS: ADMIT Internal Medicine; ATTEND Internal Medicine
PROC: 5A09357 Assistance with Respiratory Ventilation, Less than 24 Consecutive Hours, Continuous Positive Airway Pressure (ICD-10-PCS; 2019-10-21)
PROC: 5A09357 Assistance with Respiratory Ventilation, Less than 24 Consecutive Hours, Continuous Positive Airway Pressure (ICD-10-PCS; 2019-10-22)
PROC: 5A09357 Assistance with Respiratory Ventilation, Less than 24 Consecutive Hours, Continuous Positive Airway Pressure (ICD-10-PCS; 2019-10-23)
PROC: 0FT44ZZ Resection of Gallbladder, Percutaneous Endoscopic Approach (ICD-10-PCS; principal; 2019-10-23 13:45)
PROC: 5A09357 Assistance with Respiratory Ventilation, Less than 24 Consecutive Hours, Continuous Positive Airway Pressure (ICD-10-PCS; 2019-10-25)
DX: K80.00 Calculus of gallbladder with acute cholecystitis without obstruction (principal); I45.2 Bifascicular block; E11.9 Type 2 diabetes mellitus without complications; J44.9 Chronic obstructive pulmonary disease, unspecified; I10 Essential (primary) hypertension; E87.6 Hypokalemia; D72.829 Elevated white blood cell count, unspecified; R94.31 Abnormal electrocardiogram [ECG] [EKG]; E66.01 Morbid (severe) obesity due to excess calories; E78.5 Hyperlipidemia, unspecified; G47.33 Obstructive sleep apnea (adult) (pediatric); G47.30 Sleep apnea, unspecified; E78.00 Pure hypercholesterolemia, unspecified; F17.200 Nicotine dependence, unspecified, uncomplicated; K21.9 Gastro-esophageal reflux disease without esophagitis; Z79.899 Other long term (current) drug therapy; Z88.0 Allergy status to penicillin; Z68.32 Body mass index [BMI] 32.0-32.9, adult; Z83.3 Family history of diabetes mellitus; Z71.6 Tobacco abuse counseling
CPT/HCPCS: 36415; 74176; 76705; 78226; 80048; 80053; 80061; 80076; 81001; 82150; 82550; 82948; 83036; 83690; 83874; 84145; 84484; 85025; 85610; 87040; 93005; 93306; 93356; 94640; 94664; A9537; C9113; G0378; J0330; J1815; J1885; J1956; J2001; J2175; J2270; J2405; J2704; J2710; J3010; J3490; J7030

== ENCOUNTER 2021-02-08 15:29 | Observation (INO) | payer OTHER ==
[~2021-02-08] VITALS: Ht 182.9 cm; Wt 142.4 kg
[~2021-02-08 15:29] MED LIST changes: +ALPR1TAB7 PO; -ASPI-1197 PO; +FLUO10CA23 PO; -FLUT16H NS; +LEVO500T89 PO; -LISI40TA4 PO; +LISI40TA9 PO; +LORA-699 PO; -LORA-705 PO; +METR-172 PO; -OMEP40CA13 PO; +OMEP40CA21 PO; +PRAV10TA39 PO; +SILD100T PO
[2021-02-08 15:53] VITALS: BP 128/85
[2021-02-08 16:26] LABS: BASOPHILS % (AUTO) 0.3 % (0.0-5.0); EOSINOPHILS % (AUTO) 0.5 % (0.0-8.0); HEMATOCRIT 45.8 % (42-54); LYMPHOCYTES % (AUTO) 10.4 % (21.0-51.0); MEAN CORPUSCULAR HEMOGLOBIN 29.9 pg (27.0-33.0); MEAN CORPUSCULAR HGB CONC 34.3 g/dL (32.0-36.0); MEAN CORPUSCULAR VOLUME 87.2 fL (79-99); MONOCYTES % (AUTO) 6.1 % (3.0-13.0); NEUTROPHILS % (AUTO) 82.1 % (40.0-77.0); PLATELET COUNT (AUTO) 227 K/uL (130-400); RED BLOOD CELL COUNT(AUTO) 5.25 MIL/uL (4.50-6.20); WHITE BLOOD COUNT (AUTO) 18.8 K/uL (4.8-10.8)
[2021-02-08 16:31] LABS: POTASSIUM 3.9 mmol/L (3.5-5.1)
[2021-02-08 16:35] LABS: ALBUMIN 3.5 g/dL (3.5-5.0); BILIRUBIN,TOTAL 0.7 mg/dL (0.2-1.0); TOTAL PROTEIN, SERUM 7.3 g/dL (6.0-8.3)
[2021-02-08 16:49] LABS: B-TYPE NATRIURETIC PEPTIDE 7 pg/mL (0-100)
[2021-02-08 16:52] LABS: INR 1.06 (0.85-1.15); PROTHROMBIN TIME 11.5 SEC (9.6-11.6)
[2021-02-08] MEDS ORDERED: IOHEXOL 350 MG/ML 100ML INFUS..BTL IV ONE (17:50)
[2021-02-08] MEDS ORDERED: TETANUS/DIPHTHERIA TOXOID [ADULT] 0.5 ML VIAL IM ONE (18:00)
[2021-02-08] MEDS: TETANUS/DIPHTHERIA TOXOID [ADULT] 0.5 ML VIAL IM SCH (18:39)
[2021-02-08 19:14] VITALS: BP 118/68
[2021-02-08] MEDS ORDERED: 0.9%NACL 1000ML 1,000 ML IV ONE (20:00)
[2021-02-08] MEDS ORDERED: IOHEXOL-350 75 ML VIAL IV ONE (20:56)
[2021-02-09] MEDS ORDERED: ACETAMINOPHEN 325 MG TAB PO PRN (00:30)
[2021-02-09 00:44] VITALS: BP 146/78
[2021-02-09 03:13] VITALS: BP 112/80
[2021-02-09 06:38] LABS: HEMATOCRIT 42.1 % (42-54); MEAN CORPUSCULAR HEMOGLOBIN 29.2 pg (27.0-33.0); MEAN CORPUSCULAR HGB CONC 33.5 g/dL (32.0-36.0); MEAN CORPUSCULAR VOLUME 87.2 fL (79-99); PLATELET COUNT (AUTO) 188 K/uL (130-400); RED BLOOD CELL COUNT(AUTO) 4.83 MIL/uL (4.50-6.20); WHITE BLOOD COUNT (AUTO) 11.4 K/uL (4.8-10.8)
[2021-02-09 06:58] LABS: ALBUMIN 2.9 g/dL (3.5-5.0); BILIRUBIN,TOTAL 0.3 mg/dL (0.2-1.0); CREATININE 0.8 mg/dL (0.5-1.5); POTASSIUM 3.7 mmol/L (3.5-5.1); TOTAL PROTEIN, SERUM 6.3 g/dL (6.0-8.3)
[2021-02-09 07:50] LABS: LYMPHOCYTES % (MANUAL) 21 % (22-44); MAN.DIFF COMMENT-IMPRESSION MANUAL DIFFERENTIAL; MONOCYTES % (MANUAL) 3 % (2-9); SEGMENTED NEUTROPHILS % 76 % (40-70)
[2021-02-09 07:51] LABS: PLATELET MORPHOLOGY COMMENT ADEQUATE
[2021-02-09] MEDS: TETANUS/DIPHTHERIA TOXOID [ADULT] 0.5 ML VIAL IM SCH (08:10)
[2021-02-09 08:17] VITALS: BP 122/75
[2021-02-09] MEDS ORDERED: PIOG30TA70 PO (09:35)
[2021-02-09] MEDS ORDERED: HYDR-3421 PO (09:35)
[2021-02-09] MEDS ORDERED: CHOL2000 PO (09:35)
[2021-02-09] MEDS ORDERED: AEC81 PO (09:35)
== END 2021-02-09 12:17 | disposition home or self-care (01) ==
LOC: EDH 15:29 → EDHIP 22:45
PROVIDERS: ADMIT Surgery; ATTEND Surgery
DX: S40.012A Contusion of left shoulder, initial encounter (principal); V40.5XXA Car driver injured in collision with pedestrian or animal in traffic accident, initial encounter; Y93.89 Activity, other specified; Y92.413 State road as the place of occurrence of the external cause; Y99.8 Other external cause status; E11.9 Type 2 diabetes mellitus without complications; E78.00 Pure hypercholesterolemia, unspecified; I10 Essential (primary) hypertension
CPT/HCPCS: 36415 ×2; 70496; 70498; 71045; 71260; 72125; 74177; 80053 ×2; 82550; 82948; 83880; 84484; 85025 ×2; 85610; 90471; 90714; 93005; 96360; 99285; G0378 ×16; Q9967 ×2